=== PATIENT | female | born 1940 | race Caucasian/White ===

== ENCOUNTER 2020-06-03 14:44 | Emergency (ER) | payer MEDICARE, BC, SELFPAY ==
[2020-06-03 14:58] VITALS: BP 143/85; PULSE 113; RESP 17; TEMP 36.3; O2SAT 98
[2020-06-03 15:58] VITALS: BP 183/94; PULSE 108; RESP 14; O2SAT 96
--- NOTE | 2020-06-03 16:26 | ECG_ITS ---
Measurements Intervals [place] Rate: 101 P: -6 AL: 142 QRS: -10 QRSD: 92 T: 7 QT: 331 QTc: 430 Interpretive Statements SINUS TACHYCARDIA POSSIBLE LEFT ATRIAL ENLARGEMENT LEFT VENTRICULAR HYPERTROPHY WITH ST-T CHANGE BORDERLINE ECG Electronically Signed On 06-03-2020 16:56:31 CDT by Jerardo Torres D.O.
--- NOTE | 2020-06-03 16:28 | ED.RECABL ---
HPI - Recheck/Abnormal Lab/Rx General Chief Complaint: Recheck/Abnormal Lab/Rx Stated Complaint: High Blood Pressure Time Seen by Provider: 06/03/20 16:15 Source: patient Mode of arrival: ambulatory Limitations: no limitations History of Present Illness HPI narrative: This is a 79 year old female that presents to the ER for hypertension today. Reports she took her blood pressure and it was 200/100 which concerned her. She is not having any symptoms with it. Denies fever, chest pain, shortness of breath, headache, vision changes, numbness or weakness. Reports that she has been having some low back pain since yesterday. Reports history of sciatica. She took Aleve with some improvement. The pain radiates down her right leg. No known injuries or trauma. Related Data Allergies Allergy/AdvReac Type Severity Reaction Status Date / Time No Known Allergies Allergy Unknown Verified 06/03/20 15:59 Review of Systems Review of Systems: Narrative: CONSTITUTIONAL: Denies fever EYES: Denies visual changes CARDIOVASCULAR: Denies chest pain, or edema. RESPIRATORY: Denies dyspnea. MUSCULOSKELETAL: Reports back pain, joint pain, and myalgia. NEUROLOGIC: Denies headache, numbness, or weakness. All systems reviewed & are unremarkable except as noted in HPI and below PMFSH Past Medical History Medical History (Updated 06/03/20 @ 18:13 by Meredith Billy PA-C) History of CVA (cerebrovascular accident) History of hyperlipidemia History of hypertension Social History Social History Gender identity (if verbalized by the patient): Female Exam Narrative: Exam Narrative: GENERAL: Elderly, well-nourished, and in no acute distress. HEAD: Normocephalic, atraumatic. EYES: PERRLA and EOMI. ENT: Nares clear, no rhinorrhea or epistaxis. Mucous membranes moist. Oropharynx without tonsillar hypertrophy exudate or other lesions. Bilateral TMs pearly hollis non-bulging NECK: Supple. No adenopathy or masses. No carotid bruits or JVD CHEST: Clear to auscultation. No respiratory distress. No wheezes rales or rhonchi HEART: Regular rate and rhythm. No murmur heard. Normal peripheral pulses. BACK: No midline spinal tenderness EXTREMITIES: Normal range of motion. No edema. Strength equal in bilateral upper and lower extremities (5/5) SKIN: Warm, dry, no rash. NEURO: No focal deficits. Alert and oriented x3. Cranial nerves II through XII grossly intact PSYCH: Normal mood and affect Course Vital Signs Vital signs: Vital Signs Temperature 97.4 F L 06/03/20 14:58 Pulse Rate 113 H 06/03/20 14:58 Respiratory Rate 17 06/03/20 14:58 Blood Pressure 143/85 H 06/03/20 14:58 Pulse Oximetry 98 06/03/20 14:58 Temperature 97.4 F L 06/03/20 14:58 Pulse Rate 102 H 06/03/20 17:38 Respiratory Rate 15 06/03/20 17:38 Blood Pressure 164/76 H 06/03/20 17:38 Pulse Oximetry 95 06/03/20 17:38 MDM - Recheck/Abnormal Lab/Rx MDM Narrative Medical decision making narrative: Patient presents to the emergency department for elevated blood pressure. Reporting no associated symptoms. Had taken her blood pressure at home and it was 200/100. In the ED has been 140s to 160s over 70s to 80s. She denies any chest pain, shortness of breath, headache, numbness, or weakness. She is afebrile. CBC does show leukocytosis to 11.7, patient denies any infectious symptoms. Metabolic panel without concerning findings. EKG shows left ventricular hypertrophy and nonspecific ST changes. Patient denies any chest pain. Spoke with Dr. Sheehan about patient and work-up who will follow up in clinic. Patient is stable and felt appropriate for further outpatient evaluation. She was given warnings to return to the ER Patient also was reporting some low back pain. No recent injury or trauma. Pain is in the right buttock and radiates down the leg. She has good strength in her lower extremities. Took Aleve with some relief. Reports she is seeing a chiropractor for this
[2020-06-03 16:37] VITALS: BP 162/89; PULSE 104; RESP 15; O2SAT 96
[2020-06-03 16:57] LABS: Basophils Absolute Auto 0.1 K/mm3 (0.0-0.1); Basophils Percent Auto 0.5 % (0.2-1.2); Eosinophils Percent Auto 0.2 % (0-4.4); Hematocrit 40.3 % (37.0-47.0); Hemoglobin 13.7 g/dL (12.0-15.0); Immature Granulocyte Absolute 0.04 K/mm3 (0.00-0.031); Immature Granulocyte Percent A 0.3 % (0-0.5); Lymphocytes Absolute Auto 3.23 K/mm3 (0.9-3.2); Lymphocytes Percent Auto 27.6 % (18.3-44.2); Mean Corpuscular Hemoglobin 28.1 pg (26-34); Mean Corpuscular Volume 82.6 fl (80-100); Mean Platelet Volume 9.4 fl (7.4-10.4); Monocytes Absolute Auto 1.1 K/mm3 (0.1-0.6); Monocytes Percent Auto 9.6 % (2.6-8.5); Neutrophils Absolute Auto 7.2 K/mm3 (1.3-6.7); Neutrophils Percent Auto 61.8 % (45.5-73.1); Platelet Count Result 447 k/mm3 (150-375); Red Blood Count 4.88 M/mm3 (4.2-5.4); Red Cell Distribution Width 14.4 % (11.5-14.5); White Blood Count 11.7 K/mm3 (4.5-10.0)
[2020-06-03 17:07] LABS: Anion Gap 9 mmol/L (8-16); Blood Urea Nitrogen 13 mg/dL (7-17); Calcium 9.6 mg/dL (8.4-10.2); Carbon Dioxide 25 mmol/L (22-30); Chloride 105 mmol/L (98-107); Estimated CRCL calculation 53 ml/min; Estimated Glomerular Filt Rate > 60; Glucose 185 mg/dL (65-105); Sodium 139 mmol/L (137-145)
[2020-06-03 17:38] VITALS: BP 164/76; PULSE 102; RESP 15; O2SAT 95
[2020-06-03 18:32] VITALS: BP 169/88; PULSE 101; RESP 18; O2SAT 96
== END 2020-06-03 18:33 | disposition home or self-care (01) ==
PROVIDERS: Physician Assistant; Emergency Provider Emergency Medicine; PCP Internal Medicine
DX: I10 Essential (primary) hypertension (principal); M54.31 Sciatica, right side; Z86.73 Personal history of transient ischemic attack (TIA), and cerebral infarction without residual deficits; E78.5 Hyperlipidemia, unspecified; R00.0 Tachycardia, unspecified; R94.31 Abnormal electrocardiogram [ECG] [EKG]
CPT/HCPCS: 36415; 80048; 85025; 93005; 99283

== ENCOUNTER 2022-10-05 21:54 | Emergency (ER) | payer MEDICARE, BC, SELFPAY ==
[2022-10-05 22:08] VITALS: BP 217/99; PULSE 104; RESP 17; TEMP 36.9; O2SAT 98
[2022-10-06 02:04] VITALS: BP 235/100; PULSE 96; RESP 16; TEMP 36.1; O2SAT 97
[2022-10-06 02:34] VITALS: BP 203/106; PULSE 92; RESP 20; O2SAT 98
[2022-10-06 03:53] VITALS: BP 196/88; PULSE 91; RESP 17; O2SAT 96
--- NOTE | 2022-10-06 04:37 | ED.GENADULT ---
HPI - General Adult General Chief complaint: Extremity Injury, Lower Stated complaint: Spider bite on toe, diabetic Time Seen by Provider: 10/06/22 04:19 History of Present Illness HPI narrative: Patient 81-year-old female who presents the emergency department with chief complaint of left third toe redness. Patient reports she was seen in urgent care earlier today given a prescription for doxycycline and reports that there was issues getting the prescription filled. Patient reports that the area is gotten little bit more red and reports that she has not taken her evening dose of blood pressure medicines. Patient denies chest pain denies shortness of breath denies fever denies chills denies red streaking up the leg. Patient reports that she feels the original injury was a spider bite. Related Data Allergies Allergy/AdvReac Type Severity Reaction Status Date / Time No Known Allergies Allergy Unknown Verified 10/06/22 02:21 Review of Systems Review of Systems: A 10 system review of systems was completed on the patient and is negative except for what is stated in the HPI. Nursing and ancillary documentation was reviewed. [facility] Past Medical History Medical History History of CVA (cerebrovascular accident) History of hyperlipidemia History of hypertension Social History Social History Gender identity (if verbalized by the patient): Female Exam Narrative: GENERAL: Well-appearing, well-nourished, and in no acute distress. HEAD: Normocephalic, atraumatic. EYES: PERRLA and EOMI. ENT: Nares clear, no rhinorrhea or epistaxis. Mucous membranes moist. NECK: Supple. CHEST: Clear to auscultation. No respiratory distress. HEART: Regular rate and rhythm. No murmur heard. Normal peripheral pulses. ABDOMEN: Soft, nontender, nondistended, normal active bowel sounds. EXTREMITIES: Normal range of motion. No edema. SKIN: Warm, dry, no rash. There is an area of erythema on the dorsum of the left third toe. There is no necrotic tissue there is no purulent drainage there is no fluctuance NEURO: No focal deficits. Alert and oriented x3. PSYCH: Normal mood and affect. Course Vital Signs Vital signs: Vital Signs Temperature 36.9 C 10/05/22 22:08 Pulse Rate 104 H 10/05/22 22:08 Respiratory Rate 17 10/05/22 22:08 Blood Pressure 217/99 H 10/05/22 22:08 Pulse Oximetry 98 10/05/22 22:08 Temperature 36.1 C L 10/06/22 02:04 Pulse Rate 91 10/06/22 03:53 Respiratory Rate 17 10/06/22 03:53 Blood Pressure 196/88 H 10/06/22 03:53 Pulse Oximetry 96 10/06/22 03:53 Medical Decision Making MDM Narrative Medical decision making narrative: Differential diagnosis includes cellulitis, soft tissue infection, insect bite, spider bite, The patient's exam is consistent with a localized cellulitis. The patient has not taken the antibiotics at home the prescription is at the pharmacy for her to be able to case picker the patient will be given a dose of doxycycline in the emergency department at this prescription they were planning on starting on her the patient does take blood pressure medicines has not taken her evening dose of blood pressure medicines the patient will be discharged home to take her evening dose. Vital Signs Vital Signs: Vital Signs Temperature 36.9 C 10/05/22 22:08 Pulse Rate 104 H 10/05/22 22:08 Respiratory Rate 17 10/05/22 22:08 Blood Pressure 217/99 H 10/05/22 22:08 Pulse Oximetry 98 10/05/22 22:08 Temperature 36.1 C L 10/06/22 02:04 Pulse Rate 91 10/06/22 03:53 Respiratory Rate 17 10/06/22 03:53 Blood Pressure 196/88 H 10/06/22 03:53 Pulse Oximetry 96 10/06/22 03:53 Discharge Plan Discharge Clinical Impression: Cellulitis of toe of left foot Patient Disposition: Home, Self-Care Condition: Stable Instruction
[2022-10-06 04:46] VITALS: BP 195/91; PULSE 91; RESP 17; O2SAT 99
[2022-10-06] MEDS: DOXYCYCLINE HYCLATE 100 MG TABLET PO (04:46)
== END 2022-10-06 04:55 | disposition home or self-care (01) ==
PROVIDERS: Emergency Provider Emergency Medicine; PCP Internal Medicine
DX: L03.032 Cellulitis of left toe (principal); E78.5 Hyperlipidemia, unspecified; I10 Essential (primary) hypertension; Z86.73 Personal history of transient ischemic attack (TIA), and cerebral infarction without residual deficits
CPT/HCPCS: 99283; A9270